=== PATIENT | female | born 1970 | race Two or more races ===

== ENCOUNTER 2017-06-10 19:48 | Emergency (ER) | payer SELFPAY ==
[~2017-06-10] VITALS: Ht 167.6 cm; Wt 70.8 kg
[~2017-06-10 19:48] MED LIST: HYDR25TA4; IBUP200C5; PROP10TA29
[2017-06-10 19:55] VITALS: BP 135/69
--- NOTE | 2017-06-10 21:06 | NUR ---
CALLED FOR ROOM ASIGNMENT; NO ANSWER AND NOT IN LOBBY
--- NOTE | 2017-06-10 21:13 | NUR ---
CALLED AGAIN; NO ANSWER AND NOT ANYWHERE
== END 2017-06-10 21:17 | disposition left against medical advice (07) ==
LOC: ER 19:50
DX: Z53.21 Procedure and treatment not carried out due to patient leaving prior to being seen by health care provider (principal)
CPT/HCPCS: A4606; Z7610